=== PATIENT | male | born 1960 | race Caucasian/White ===

== ENCOUNTER 2018-12-21 08:22 | Day surgery (SDC) | payer OTHER ==
[~2018-12-21 08:22] MED LIST: Benzocaine 20% Topical Spray UD MUCMEM ONE; Midazolam 1 MG/ML 2 ML SDV ONE; fentaNYL 100 MCG/2 ML SDV ONE
[2018-12-21] MEDS ORDERED: Midazolam 1 MG/ML 2 ML SDV IV ONE ×4 (08:23→09:48)
[2018-12-21] MEDS ORDERED: Dextrose 5%-0.45% NaCl 1,000 ML IV SCH (08:30)
[2018-12-21] MEDS ORDERED: Benzocaine 20% Topical Spray UD MUCMEM ONE (09:49)
--- NOTE | 2018-12-21 10:30 | OR ---
DATE: 12/21/2018 PREOPERATIVE DIAGNOSIS: Dysphagia. POSTOPERATIVE DIAGNOSIS: Dysphagia. PROCEDURE: Esophagogastroduodenoscopy. ANESTHESIA: Conscious sedation with IV Versed. SPECIMEN: None. OPERATIVE FINDINGS: Moderate-sized hiatal hernia. RECOMMENDATION: The patient does not have any esophagitis from reflux and does not really have too much in the way of significant reflux symptoms. His dysphagia is most likely caused by the hiatal hernia. He does not have any masses or strictures that would catch food in the distal esophagus, might consider a laparoscopic hiatal hernia and fundoplication procedure, that will be up to the patient if his symptoms worsen. As long as he monitors how he eats, eating slow, small bites, and take his time, he should be okay without surgery. INDICATION FOR PROCEDURE: This 58-year-old male referred for dysphagia symptoms. By his report, he had a dilation about 20 years ago, that is a little unusual. Currently, his dysphagia is for solid foods only. PROCEDURE IN DETAIL: After adequate preparation, a gastroscope was inserted into the esophagus. This was passed down to the distal esophagus. He shows no evidence of reflux esophagitis, strictures, or masses. He does have a moderate- sized hernia, measures probably 4 to 5 cm of upper stomach within the mediastinal sac. The scope was advanced into the stomach. Both forward and retroflexed views were done and are normal. The scope was advanced through the pylorus and the first and second parts of the duodenum are also normal. Air was suctioned from the stomach. Photographs of the hiatal hernia were taken and the scope removed. [facility] /[id number]
[2018-12-21 11:50] VITALS: BP 124/81; PULSE 70
== END 2018-12-21 11:40 | disposition home or self-care (01) ==
LOC: DL.ENDO 08:22
PROVIDERS: ATTEND Surgery
DX: K44.9 Diaphragmatic hernia without obstruction or gangrene (principal); K21.9 Gastro-esophageal reflux disease without esophagitis
CPT/HCPCS: 43235; A9270; J7042; J2250

== ENCOUNTER 2019-01-17 06:26 | Day surgery (SDC) | payer OTHER ==
[2019-01-17] MEDS ORDERED: Glycopyrrolate 0.2 MG/ML 2 ML SDV IV ONE (06:27)
[2019-01-17] MEDS ORDERED: Lactated Ringers 1,000 ML IV ONE (06:27)
[2019-01-17] MEDS ORDERED: Rocuronium 100 MG/10 ML MDV IV ONE (06:27)
[2019-01-17] MEDS ORDERED: fentaNYL 250 MCG/5 ML SDV IV ONE (06:27)
[2019-01-17] MEDS ORDERED: Propofol 200 MG/20 ML SDV IV ONE (06:27)
[2019-01-17] MEDS ORDERED: Midazolam 1 MG/ML 2 ML SDV IV ONE (06:27)
[2019-01-17] MEDS ORDERED: Ketorolac 30 MG/ML SDV IVPUSH ONE (06:27)
[2019-01-17] MEDS ORDERED: Succinylcholine 200 MG/10 ML MDV IV ONE (06:27)
[2019-01-17] MEDS ORDERED: Ondansetron 4 MG/2 ML SDV IV ONE (06:27)
[2019-01-17] MEDS ORDERED: fentaNYL 100 MCG/2 ML SDV IV ONE (06:27)
[2019-01-17] MEDS ORDERED: Sodium Chloride 0.9% 10 ML Syringe FLUSH SCH (06:30)
[2019-01-17] MEDS ORDERED: Lactated Ringers 1,000 ML IV SCH (06:30)
[2019-01-17 07:21] LABS: ANION GAP 12.9; CHLORIDE,CL 105 mmol/L (101-111); SODIUM,NA 137 mmol/L (135-145)
[2019-01-17] MEDS ORDERED: Morphine 2 MG/ML Syringe IVPUSH PRN (10:31)
[2019-01-17] MEDS ORDERED: Acetaminophen/oxyCODONE 325-5 MG Tab PO PRN (10:31)
[2019-01-17] MEDS ORDERED: Sodium Chloride 0.9% 10 ML Syringe FLUSH PRN (10:35)
--- NOTE | 2019-01-17 11:22 | OR ---
DATE: 01/17/2019 PREOPERATIVE DIAGNOSIS: Gastroesophageal reflux disease and large hiatal hernia. POSTOPERATIVE DIAGNOSIS: Gastroesophageal reflux disease and large hiatal hernia. PROCEDURE: Laparoscopic Justyn fundoplication. ANESTHESIA: General. ESTIMATED BLOOD LOSS: Minimal. SPECIMEN: None. FINDINGS: Large hiatal hernia. INDICATION FOR PROCEDURE: This 58-year-old male has gastroesophageal reflux symptoms. He has an EGD that shows a distal esophagitis and a [id number] size hernia. His medications do not particularly help him any besides heartburn. He has regurgitation symptoms. PROCEDURE IN DETAIL: After adequate preparation, a 5-mm trocar was placed in the left upper quadrant, and the abdomen was insufflated. Five other 12 trocars were placed under direct vision. The left lobe of the liver was elevated to expose the esophageal hiatus. He had several centimeter of stomach protruding up through a hiatal hernia into the chest. This was pulled easily back down into the abdomen. The lesser omentum was incised and the peritoneal reflection along the right crura was then bluntly. The esophagus was dissected free from the surrounding mediastinal structures. The peritoneum was then taken off the left side of the crura to totally free the esophagus up. The short gastrics and fundus of the stomach were then taken down using a Harmonic Scalpel. Two permanent Ethibond sutures were used to close the hiatal opening around the esophagus and 2 sutures were used to then sew a 360-degree fundal wrap around the lower esophagus. This was adequately loose. One permanent suture was used to anchor the posterior portion of the wrap to the base of the crural closure. There was only minimal bleeding at all through the case. No other intraabdominal abnormalities were noted. The abdomen was desufflated, trocars removed, and the skin closed with Monocryl. [facility] /[id number]
[2019-01-18 07:40] VITALS: BP 111/80; PULSE 78
--- NOTE | 2019-01-18 09:26 | PCM.SN ---
- Free Text/Narrative Note: Stable POD#1. PO liquids tolerated well. Minimal pain. Wounds clean and dry. Can discharge today. FU my clinic Feb 20 if needed. Should have full liquids for the first week then may advance diet as tolerated. Percocet (#20) given for pain.
== END 2019-01-18 10:00 | disposition home or self-care (01) ==
LOC: DL.SDS 06:26 → DL.MS 10:31 → DL.SDS 01-18 10:00
PROVIDERS: ATTEND Surgery
DX: K44.9 Diaphragmatic hernia without obstruction or gangrene (principal); K21.0 Gastro-esophageal reflux disease with esophagitis; F41.9 Anxiety disorder, unspecified
CPT/HCPCS: 36415; 43280; 80048; 85027; A9270; J0330; J1885; J2250; J2405; J2704; J3010; J3490; J7120

== ENCOUNTER 2019-04-20 07:26 | Day surgery (SDC) | payer OTHER ==
--- NOTE | 2019-04-19 14:35 | HP ---
INTRODUCTION: This 58-year-old male was originally seen by me in the clinic 2 days ago with complaints of continued dysphagia after a laparoscopic Justyn fundoplication. This procedure was done on 01/17/2019. Postoperatively, he still had dysphagia and an upper GI study that was done on 04/10/2019, showed distal narrowing of the esophagus at the wrap site. This was read out as possible stricture, however, this does not represent a stricture. This indicates the wrap is too tight. ALLERGIES: The patient has no known drug allergies. CURRENT MEDICATIONS: Protonix, however, he does have a history of taking Zocor and ibuprofen. PAST SURGICAL HISTORY: Includes a Justyn fundoplication, an EGD, and shoulder arthroscopy. FAMILY HISTORY AND SOCIAL HISTORY: The patient lives in [place]. He does not smoke. He works for the [employer] system here in [place]. REVIEW OF SYSTEMS: Positive for reflux and anxiety. The review of systems at 1 time was positive for chest pain, but workup of stress test was negative for any coronary artery disease. He also has a history of hyperlipidemia. PHYSICAL EXAMINATION: HEENT: Normal. Chest: Lungs are clear bilaterally. Heart: Normal sinus rhythm. Abdomen: Soft, nontender. There is no evidence of hernias. He has well healed trocar site incisions. Extremities: Have good range of motion. No edema. Neurologic: Grossly intact. ASSESSMENT: Dysphagia post laparoscopic Justyn fundoplication. PLAN: I discussed options with this patient including an esophagogastroduodenoscopy with dilation. However, I think that probably will not make him as good as he needs to be and would recommend simply revising or loosening by taking down the fundoplication wrap. I think he would be happier, however, since the hiatal hernia has been closed. If we just simply undo the wrap, that should take care of his dysphagia. I think this is a reasonable approach to have this revised and plan on doing this at [facility] on 04/20/2019. [facility] /[id number]
[2019-04-20] MEDS ORDERED: Glycopyrrolate 0.2 MG/ML 2 ML SDV IV ONE (07:27)
[2019-04-20] MEDS ORDERED: Lidocaine 2% 20 ML MDV ONE (07:27)
[2019-04-20] MEDS ORDERED: Dexamethasone 4 MG/ML SDV IV ONE (07:27)
[2019-04-20] MEDS ORDERED: Midazolam 1 MG/ML 2 ML SDV IV ONE (07:27)
[2019-04-20] MEDS ORDERED: Succinylcholine 200 MG/10 ML MDV IV ONE (07:27)
[2019-04-20] MEDS ORDERED: Ondansetron 4 MG/2 ML SDV IV ONE (07:27)
[2019-04-20] MEDS ORDERED: Sodium Chloride 0.9% 10 ML Syringe IV ONE (07:27)
[2019-04-20] MEDS ORDERED: fentaNYL 250 MCG/5 ML SDV IV ONE (07:27)
[2019-04-20] MEDS ORDERED: Rocuronium 100 MG/10 ML MDV IV ONE (07:27)
[2019-04-20] MEDS ORDERED: Propofol 200 MG/20 ML SDV IV ONE (07:27)
[2019-04-20] MEDS ORDERED: Lactated Ringers 1,000 ML IV SCH (08:00)
--- NOTE | 2019-04-20 11:51 | OR ---
DATE: 04/20/2019 PREOPERATIVE DIAGNOSIS: Dysphagia post Justyn fundoplication. POSTOPERATIVE DIAGNOSIS: Dysphagia post Justyn fundoplication. PROCEDURE: Laparoscopic revision of prior Justyn fundoplication. ANESTHESIA: General. ESTIMATED BLOOD LOSS: None. SPECIMEN: None. INDICATION FOR PROCEDURE: This 58-year-old male had a laparoscopic Justyn fundoplication done in January. Postoperatively, he has significant dysphagia. I put this off hoping this would eventually relax and stretch open, but upper GI esophageal swallow done does show a 5-minute delay in emptying of the distal esophagus. I did discuss different options with this patient, especially dilation. However, I think this patient will do better with simply revision of the Justyn. PROCEDURE IN DETAIL: After adequate preparation, trocars were placed intra- abdominally under direct vision. There were no intraabdominal adhesions from his prior Justyn fundoplication. The left lobe of the liver was elevated. There were a few omental attachments to the inferior surface of the liver. These were taken down by cautery dissection. I could easily identify the wrapped procedure, although it did not seem to be excessively tight, I could elevate the fundoplication and easily see beneath this. In any event, the fundoplication was freed up from the surrounding tissues and a 45 mm stapler was used to transect the fundoplication at the prior site where it had been sewn together. This adequately freed up the stomach. I did leave the posterior portion intact, there was a partial wrap. The hiatus was visually well dilated enough. I only incised a small portion of the right crura to enlarge the hiatal opening, but this was large enough in the 1st place. No other intraabdominal abnormalities were noted. Trocars were removed and the abdomen desufflated and the skin closed with Vicryl. [facility] /[id number]
[2019-04-20 12:38] VITALS: BP 118/79; PULSE 56
== END 2019-04-20 12:25 | disposition home or self-care (01) ==
LOC: DL.SDS 07:26
PROVIDERS: ATTEND Surgery
DX: K91.89 Other postprocedural complications and disorders of digestive system (principal); R13.10 Dysphagia, unspecified; K21.9 Gastro-esophageal reflux disease without esophagitis; J45.909 Unspecified asthma, uncomplicated; E78.5 Hyperlipidemia, unspecified; Z79.899 Other long term (current) drug therapy; Z98.890 Other specified postprocedural states; Y83.9 Surgical procedure, unspecified as the cause of abnormal reaction of the patient, or of later complication, without mention of misadventure at the time of the procedure
CPT/HCPCS: 43280; J0330; J1100; J2001; J2250; J2405; J2704; J3010; J3490; J7120

== ENCOUNTER 2020-08-23 07:30 | Emergency (ER) | payer OTHER ==
[2020-08-23] MEDS ORDERED: Sodium Chloride 0.9% 10 ML Syringe IV ONE (07:53)
[2020-08-23] MEDS ORDERED: HYDROmorphone 0.5 MG/0.5 ML Syringe IV ONE (07:53)
[2020-08-23] MEDS ORDERED: Diphtheria,Pertussis(Acell),Tetanus Vaccine 0.5 ML Syringe IM ONE (08:02)
[2020-08-23] MEDS ORDERED: ceFAZolin 1 GM in Sodium Chloride 0.9% 50 ML IV ONE (08:17)
--- NOTE | 2020-08-23 11:11 | CR ---
EXAMINATION: Fingers Third Digit Lt F2 SEX: Male AGE: 59 years CLINICAL HISTORY: 59-year-old male severe laceration" and pain distal end of the left middle (third) finger. Interpretation: Abnormal. 1. Badly comminuted (shattered) FRACTURE distal phalanx left middle finger (4 separate fragments, offset). 2. Prominent skin laceration immediately behind the nailbed distal phalanx middle finger left hand. 3. No disruption of the adjacent DIP joint. 4. No fracture or dislocation adjacent index/ring fingers. 5. No foreign bodies.
== END 2020-08-23 10:12 ==
LOC: DL.ED 09:52
DX: S68.123A Partial traumatic metacarpophalangeal amputation of left middle finger, initial encounter (principal); Z23 Encounter for immunization; W23.0XXA Caught, crushed, jammed, or pinched between moving objects, initial encounter; Y92.219 Unspecified school as the place of occurrence of the external cause
CPT/HCPCS: 73140-F2; 90471; 90715; 96365; 99284; 99284-25; J0690; J1170

== ENCOUNTER 2022-01-21 09:10 | Emergency (ER) | payer OTHER ==
[2022-01-21 09:29] VITALS: BP 140/101; PULSE 85
[2022-01-21] MEDS ORDERED: Glucagon,Human Recombinant 1 MG Vial IM ONE (09:40)
== END 2022-01-21 09:57 | disposition home or self-care (01) ==
LOC: DL.ED 09:10
DX: T18.128A Food in esophagus causing other injury, initial encounter (principal); E78.00 Pure hypercholesterolemia, unspecified; Z91.048 Other nonmedicinal substance allergy status; Z79.899 Other long term (current) drug therapy
CPT/HCPCS: 96372; 99283; J1610

== ENCOUNTER 2022-01-22 06:50 | Day surgery (SDC) | payer OTHER ==
[~2022-01-22 06:50] MED LIST changes: -Benzocaine 20% Topical Spray UD MUCMEM ONE
[2022-01-22] MEDS ORDERED: Midazolam 1 MG/ML 2 ML SDV IV ONE ×4 (06:51→08:37)
[2022-01-22] MEDS ORDERED: fentaNYL 100 MCG/2 ML SDV IV ONE ×3 (06:51→08:11)
[2022-01-22] MEDS ORDERED: Dextrose 5%-0.45% NaCl 1,000 ML IV SCH (07:00)
[2022-01-22 11:05] VITALS: BP 130/87; PULSE 73
== END 2022-01-22 11:00 | disposition home or self-care (01) ==
LOC: DL.ENDO 06:50 → EDSTATUS 07:30 → DL.ENDO 11:00
PROVIDERS: ATTEND Internal Medicine Gastroenterology
DX: K22.2 Esophageal obstruction (principal); K26.9 Duodenal ulcer, unspecified as acute or chronic, without hemorrhage or perforation; K21.9 Gastro-esophageal reflux disease without esophagitis; E78.5 Hyperlipidemia, unspecified; I10 Essential (primary) hypertension; R63.4 Abnormal weight loss; Z91.048 Other nonmedicinal substance allergy status; Z98.890 Other specified postprocedural states; Z68.24 Body mass index [BMI] 24.0-24.9, adult
CPT/HCPCS: J2250; J3010; J7042

== ENCOUNTER 2022-02-05 14:15 | Emergency (ER) | payer OTHER ==
[2022-02-05 14:31] VITALS: BP 144/106; PULSE 79
== END 2022-02-05 15:54 | disposition home or self-care (01) ==
LOC: DL.ED 14:15
DX: S80.01XA Contusion of right knee, initial encounter (principal); M79.89 Other specified soft tissue disorders; E78.00 Pure hypercholesterolemia, unspecified; K21.9 Gastro-esophageal reflux disease without esophagitis; Z86.16 Personal history of COVID-19; Z91.09 Other allergy status, other than to drugs and biological substances; Z79.01 Long term (current) use of anticoagulants; Z79.899 Other long term (current) drug therapy; Z96.651 Presence of right artificial knee joint
CPT/HCPCS: 93971; 99283

== ENCOUNTER 2022-02-19 10:36 | Emergency (ER) | payer OTHER ==
[2022-02-19] MEDS ORDERED: Sodium Chloride 0.9% 10 ML Syringe FLUSH PRN (11:02)
[2022-02-19 11:24] VITALS: BP 130/90; PULSE 109
[2022-02-19 12:18] LABS: CORONAVIRUS COVID-19 NAA NEGATIVE (NEGATIVE); RESPIRATORY SYNCYTIAL VIR NAA NEGATIVE (NEGATIVE)
[2022-02-19 12:45] LABS: CHLORIDE,CL 96 mmol/L (98-107); SODIUM,NA 131 mmol/L (136-145)
[2022-02-19 12:57] LABS: ESTIMATED GFR 58 mL/min (>=60)
== END 2022-02-19 14:05 | disposition home or self-care (01) ==
LOC: DL.ED 10:36
DX: R41.82 Altered mental status, unspecified (principal); G47.00 Insomnia, unspecified; E78.00 Pure hypercholesterolemia, unspecified; K21.9 Gastro-esophageal reflux disease without esophagitis; R63.4 Abnormal weight loss; Z86.16 Personal history of COVID-19; Z91.09 Other allergy status, other than to drugs and biological substances; Z79.01 Long term (current) use of anticoagulants; Z79.899 Other long term (current) drug therapy; Z20.822 Contact with and (suspected) exposure to COVID-19; Z68.24 Body mass index [BMI] 24.0-24.9, adult
CPT/HCPCS: 0241U; 36415; 70450; 80053; 80307; 82140; 82150; 82550; 83605; 83615; 83690; 83735; 84443; 85025; 93005; 99285

== ENCOUNTER 2024-01-10 08:55 | Emergency (ER) | payer OTHER ==
[2024-01-10 09:32] LABS: BASOPHILS PERCENT AUTO 0.1 % (0.0-1.0); EOSINOPHILS PERCENT AUTO 0.8 % (1.0-3.0); HEMATOCRIT 44.5 % (40.0-54.0); HEMOGLOBIN 14.5 g/dL (14.0-18.0); MEAN CORPUSCULAR HGB CONC 32.6 g/dL (33.0-35.0); MEAN CORPUSCULAR VOLUME 86.1 fL (80-100); MONOCYTES PERCENT AUTO 7.4 % (2-8); NEUTROPHILS PERCENT AUTO 77.7 % (42.2-75.2); PLATELET COUNT,PLT 244 10^3/uL (150-450); RED BLOOD CELL COUNT 5.17 10^6/uL (4.6-6.2); WHITE BLOOD CELL COUNT,WBC 8.4 10^3/uL (5.0-10.0)
[2024-01-10 09:52] LABS: A/G RATIO 1.2; ALBUMIN 4.3 g/dL (3.4-5.0); ANION GAP 14.3 mEq/L (7-13); BILIRUBIN TOTAL 0.4 mg/dL (0.2-1.0); BUN/CREATININE RATIO 10.2 (No establ ref range); CALCIUM 9.3 mg/dL (8.5-10.1); CREATININE 1.37 mg/dL (0.70-1.30); EST CRCL DRUG DOSING (CG) 60.31 mL/min; POTASSIUM,K 4.3 mmol/L (3.5-5.1)
[2024-01-10] MEDS: Iopamidol 612 MG/ML 100 ML Bottle IVPUSH ONE (10:07)
[2024-01-10 10:16] VITALS: BP 157/90; PULSE 71
[2024-01-10] MEDS: Sodium Chloride 0.9% 1,000 ML IV ONE (11:13)
[2024-01-10] MEDS: Famotidine 20 MG/2 ML SDV ONE (12:01)
[2024-01-10] MEDS: GI Cocktail Oral Solution 30 ML PO ONE (12:01)
[2024-01-10] MEDS: Famotidine 20 MG/2 ML SDV IVPUSH ONE (12:01)
== END 2024-01-10 12:10 | disposition home or self-care (01) ==
LOC: DL.ED 08:55
DX: K21.00 Gastro-esophageal reflux disease with esophagitis, without bleeding (principal); N17.9 Acute kidney failure, unspecified; E78.00 Pure hypercholesterolemia, unspecified; Z91.048 Other nonmedicinal substance allergy status; Z79.899 Other long term (current) drug therapy; Z86.16 Personal history of COVID-19; Z90.49 Acquired absence of other specified parts of digestive tract
CPT/HCPCS: 36415; 70491; 80053; 85025; 96361; 96374; 99284; A9270; J3490; J7030; Q9967